=== PATIENT | male | born 1960 | race Caucasian/White ===

== ENCOUNTER → 2016-12-13 | Outpatient (CLI) | payer BC ==
--- NOTE | 2016-12-13 18:46 | RADRPT ---
PROCEDURE: XR Pelvis. CLINICAL INDICATION: Pelvic pain. Right hip pain. TECHNIQUE: 3 views. Frontal pelvis. Frontal and lateral right hip. COMPARISON: No prior studies are available for comparison. FINDINGS: There is no fracture or dislocation. There is no lytic or blastic lesion. There are moderate degenerative changes of the right hip with joint space narrowing and osteophytes. The left hip is normal. The upper pelvis is not included on the image. The sacroiliac joints are grossly unremarkable. There is no radiopaque foreign body. IMPRESSION: 1. Moderate degenerative changes of the right hip. 2. Normal left hip. 3. No acute abnormality. RPTAT: QQ .Andrés Barroso MD, Date Time Electronically viewed and signed by .Andrés Barroso MD, on 12/13/2016 18:46 .R/
--- NOTE | 2016-12-13 18:48 | RADRPT ---
PROCEDURE: XR Pelvis. CLINICAL INDICATION: Pelvic pain. Right hip pain. TECHNIQUE: 3 views. Frontal pelvis. Frontal and lateral right hip. COMPARISON: No prior studies are available for comparison. FINDINGS: There is no fracture or dislocation. There is no lytic or blastic lesion. There are moderate degenerative changes of the right hip with joint space narrowing and osteophytes. The left hip is normal. The upper pelvis is not included on the image. The sacroiliac joints are grossly unremarkable. There is no radiopaque foreign body. IMPRESSION: 1. Moderate degenerative changes of the right hip. 2. Normal left hip. 3. No acute abnormality. RPTAT: QQ .Andrés Barroso MD, Date Time Electronically viewed and signed by .Andrés Barroso MD, on 12/13/2016 18:47 .R/
== END | disposition home or self-care (01) ==
LOC: HKI 13:42
PROVIDERS: ATTEND Orthopaedic Surgery
DX: M25.551 Pain in right hip (principal); M16.11 Unilateral primary osteoarthritis, right hip
CPT/HCPCS: 72170; 73502; G0463